=== PATIENT | female | born 1960 | race Caucasian/White ===

== ENCOUNTER → 2016-11-15 | Outpatient (CLI) | payer BC ==
[~2016-11-15] MED LIST: ASPEC81 PO; ATV5X PO; ZOLP5TAB PO
--- NOTE | 2016-11-16 12:41 | MAMMOGRAPHY REPORT ---
BILATERAL DIGITAL SCREENING MAMMOGRAM TOMOSYNTHESIS WITH CAD: 11/15/2016 CLINICAL HISTORY: Routine screening. Patient has no complaints. TECHNIQUE: Breast tomosynthesis in addition to standard 2D mammography was performed. Current study was also evaluated with a Computer Aided Detection (CAD) system. COMPARISON: Comparison is made to exams dated: 09/29/2015 mammogram, 08/01/2013 mammogram, 09/26/2014 m ammogram, 08/07/2012 mammogram, 07/28/2011 mammogram, and 07/27/2010 mammogram - [facility]. BREAST COMPOSITION: The tissue of both breasts is heterogeneously dense, which may obscure small ma sses. FINDINGS: Linear scar markers overlie the 12:00 right breast and upper outer anterior left breast, d enoting skin surgical scars. There is expected architectural distortion in the upper outer quadrant of the left breast, and 12:00 right breast in the areas of prior surgery. There are benign appeari ng coarse calcifications bilaterally. No new suspicious mass, unexpected architectural distortion o r cluster of suspicious microcalcifications is seen. IMPRESSION: ACR BI-RADS CATEGORY 1: NEGATIVE There is no mammographic evidence of malignancy. A 1 year screening mammogram is recommended. The p atient will receive written notification of the results. Approximately 10% of breast cancers are not detected with mammography. A negative mammographic repor t should not delay biopsy if a clinically suggestive mass is present. Taryn Bernardo M.D. ay/:11/15/2016 17:55:38 Tobacco Prizer: Anabelle Cid RT(R)(M), [facility] letter sent: Normal 1/2 BI-RADS Code: ACR BI-RADS Category 1: Negative
== END | disposition home or self-care (01) ==
LOC: C.MAMM 07:18
PROVIDERS: ATTEND Family Medicine
DX: Z12.31 Encounter for screening mammogram for malignant neoplasm of breast (principal)

== ENCOUNTER → 2017-09-11 | Day surgery (SDC) | payer BC ==
[~2017-09-11] VITALS: Ht 162.6 cm; Wt 62.0 kg
[~2017-09-11] MED LIST changes: -ASPEC81 PO; +FENTANYL CITRATE INJ 50 MCG/1 ML 2 ML VIAL ONE; +HYDR25SU20 PR; +LIDOCAINE HCL 2% 2 ML VIAL (20MG/ML) ONE; +ONDANSETRON INJ 2 MG/ML 2 ML VIAL IV PRN; +PANT1TAB3 PO; +PROPOFOL IV EMULSION 10 MG/ML 20 ML VIAL IV ONE
[2017-09-11 08:47] VITALS: Ht 162.6 cm; Wt 62.0 kg
--- NOTE | 2017-09-11 09:10 | Endo History and Physical ---
History & Physical Date of Service: Sep 11, 2017. Chief Complaint: Hematochezia and abdominal pain Referring Physician: History of Present Illness Patient to undergo a hysterectomy later this week referred for upper endoscopy and colonoscopy to evaluate for history of epigastric discomfort and recurrent hematochezia. She reports her last colonoscopy was performed 2.5 years ago and notable for internal hemorrhoids. She does have a prior history of colonic polyps first noted in 2009. The patient last had an upper endoscopy 2 years ago for abdominal discomfort and was found to have diffuse gastritis. She was recently restarted on Protonix 1 time daily. 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) Hx Urinary Tract Surgery: No Family History Colon CA Social History Smoking Status: Never Smoker Hx Substance Use: Yes Hx Alcohol Use: Yes (1-2 A WEEK) Allergies Coded Allergies: Sulfa Antibiotics (Verified Allergy, Unknown, OCCURED A CHILD, RASH, ) Current Medications Reported Home Medications Medications Dose Route/Sig Max Daily Dose Days Date Category Protonix (Pantoprazole) 40 Mg Tab 40 Mg PO DAILY 09/08/17 Reported Ambien (Zolpidem Tartrate) 5 Mg Tab 5 Mg PO HS PRN 04/16/16 Reported Lorazepam 0.5 Mg Tab 0.5 Mg PO DAILY PRN 04/16/16 Reported Vital Signs Weight (Kilograms): 62.05 Height (Feet): 5 Height (Inches): 4 Physical Exam General Appearance: no apparent distress Respiratory/Chest: Auscultation: breath sounds normal Cardiovascular: Heart Auscultation: RRR Assessment and Plan EGD and colonoscopy today. We've discussed the risks to include bleeding, infection, perforation and pain.
--- NOTE | 2017-09-11 10:02 | Discharge Instructions ---
Endoscopy Patient Instructions Date / Procedure(s) Performed Sep 11, 2017. Colonoscopy, EGD Allergy Information Coded Allergies: Sulfa Antibiotics (Verified Allergy, Unknown, OCCURED A CHILD, RASH, ) Discharge Date / Findings Sep 11, 2017. Hemorrhoids 1 small colon polyp Hiatal hernia Medication Instructions Reported Home Medications Medications Dose Route/Sig Max Daily Dose Days Date Category Protonix (Pantoprazole) 40 Mg Tab 40 Mg PO DAILY 09/08/17 Reported Ambien (Zolpidem Tartrate) 5 Mg Tab 5 Mg PO HS PRN 04/16/16 Reported Lorazepam 0.5 Mg Tab 0.5 Mg PO DAILY PRN 04/16/16 Reported Provider Instructions Activity Restrictions - No exercising or heavy lifting for 24 hours. - Do not drink alcohol the day of the procedure. - Do not drive a car or operate machinery until the day after the procedure. - Do not make any important decisions or sign important papers in 24 hours after the procedure. Following Day: - Return to full activity which may include returning to work/school. Diet Start your diet with liquids and light foods (jello, soup, juice, toast). Then eat your usual diet if not nauseated. Treatment For Common After Affects For mild abdominal pain, bloating, or excessive gas: - Rest - Eat lightly - Lie on right side Follow-Up Information Follow-up with DR. HERRERA as scheduled Upper GI series ordered Await pathology results Continue Protonix 40 mg per day for 3 months (continue if symptoms improved) Anesthesia Information What You Should Know You have had a procedure that required some medicine to reduce anxiety and discomfort. This treatment is called moderate sedation. After receiving the treatment, you may be sleepy, but you will be able to breathe on your own. The effects of the treatment may last for several hours. Follow these instructions along with Activity/Diet recommendations noted above: * Do NOT do anything where dizziness or clumsiness would be dangerous. * Rest quietly at home today, then you can be up and about tomorrow. * Have a responsible person stay with you the rest of today. * You may have had an I.V. today. If so, you may take the dressing off later today. Recommendations Call your doctor if: * Trouble breathing * Continuous vomiting for more than 24 hours * Temperature above 101 degrees * Severe abdominal pain or bloating * Pain not relieved by pain medicine ordered * There is increased drainage or redness from any incision * A large amount of rectal bleeding greater than 2-3 tablespoons. (If you had a polyp/s removed or have hemorrhoids, a small amount of blood - from the rectum is to be expected.) * You have any unanswered questions or concerns. IN THE EVENT OF A SERIOUS EMERGENCY, GO TO THE NEAREST EMERGENCY ROOM Your discharge instructions were prepared by provider Nadeem Maxwell. Patient Instructions Signature Page Maria E Hamm Patient (or Guardian) Signature/Date: I have read and understand the instructions given to me by my caregivers. Caregiver/RN/Doctor Signature/Date: The above-named patient and/or guardian has received patient instructions on this date. + Original Patient Signature Page (only) stays with chart. Please make copy for patient.
--- NOTE | 2017-09-11 10:06 | GI REPORT ---
Procedure Date: 09/11/2017 8:57 AM Procedure: Colonoscopy Indications: High risk colon cancer surveillance: Personal history of colonic polyps Medicines: Monitored Anesthesia Care Complications: No immediate complications. Estimated blood loss: Minimal. Estimated Blood Loss: Estimated blood loss was minimal. Procedure: Pre-Anesthesia Assessment: - Prior to the procedure, a History and Physical was performed, and patient medications, allergies and sensitivities were reviewed. The patient's tolerance of previous anesthesia was reviewed. - The risks and benefits of the procedure and the sedation options and risks were discussed with the patient. All questions were answered and informed consent was obtained. - Patient identification and proposed procedure were verified prior to the procedure by the physician, the nurse and the school psychologist. The procedure was verified in the procedure room. - Pre-procedure physical examination revealed no contraindications to sedation. - ASA Grade Assessment: II - A patient with mild systemic disease. - After reviewing the risks and benefits, the patient was deemed in satisfactory condition to undergo the procedure. - The anesthesia plan was to use monitored anesthesia care (MAC). - Immediately prior to administration of medications, the patient was re-assessed for adequacy to receive sedatives. - The heart rate, respiratory rate, oxygen saturations, blood pressure, adequacy of pulmonary ventilation, and response to care were monitored throughout the procedure. - The physical status of the patient was re-assessed after the procedure. After I obtained informed consent, the scope was passed under direct vision. Throughout the procedure, the patient's blood pressure, pulse, and oxygen saturations were monitored continuously. The scope was introduced through the anus and advanced to the terminal ileum. The colonoscopy was performed without difficulty. The patient tolerated the procedure well. The quality of the bowel preparation was good. Findings: The digital rectal exam findings include non-thrombosed external hemorrhoids. Pertinent negatives include normal sphincter tone. Internal hemorrhoids were found during retroflexion. The hemorrhoids were moderate. A 5 mm polyp was found in the sigmoid colon. The polyp was sessile. The polyp was removed with a cold snare. Resection and retrieval were complete. Estimated blood loss was minimal. The terminal ileum appeared normal. Normal cecal retroflexion The exam was otherwise without abnormality. Impression: - Non-thrombosed external hemorrhoids found on digital rectal exam. - Internal hemorrhoids. - One 5 mm polyp in the sigmoid colon, removed with a cold snare. Resected and retrieved. - The examined portion of the ileum was normal. - The examination was otherwise normal. Recommendation: - Discharge patient to home (ambulatory). - Advance diet as tolerated today. - Await pathology results. - Repeat colonoscopy in 5 years for surveillance. Nadeem Maxwell D.O. Nadeem Maxwell, 09/11/2017 9:57:31 AM This report has been signed electronically. Note Initiated On: 09/11/2017 8:57 AM I attest to the content of the Intraoperative Record and orders documented therein, exceptions below
--- NOTE | 2017-09-11 10:23 | Anesthesiology Progress Note ---
Anesthesia Post Op Note Date & Time Sep 11, 2017 at 10:23 Vital Signs Pain Intensity: 3 Vital Signs Past 12 Hours Date Time Temp Pulse Resp B/P (MAP) Pulse Ox O2 Delivery O2 Flow Rate FiO2 09/11/17 10:11 56 18 142/82 (102) 100 Room Air 09/11/17 09:56 67 12 109/80 (90) 100 Room Air 09/11/17 09:12 36.5 66 18 136/94 (108) 100 Room Air Notes Mental Status: alert / awake / arousable, participated in evaluation Pt Amnestic to Procedure: Yes Nausea / Vomiting: adequately controlled Pain: adequately controlled Airway Patency, RR, SpO2: stable & adequate BP & HR: stable & adequate Hydration State: stable & adequate Anesthetic Complications: no major complications apparent
[2017-09-11 10:26] VITALS: BP 121/83; PULSE 50; O2SAT 100
--- NOTE | 2017-09-12 11:40 | GI REPORT ---
Procedure Date: 09/11/2017 8:58 AM Procedure: Upper GI endoscopy Indications: Epigastric abdominal pain Medicines: Monitored Anesthesia Care Complications: No immediate complications. Estimated blood loss: Minimal. Estimated Blood Loss: Estimated blood loss was minimal. Procedure: Pre-Anesthesia Assessment: - Prior to the procedure, a History and Physical was performed, and patient medications, allergies and sensitivities were reviewed. The patient's tolerance of previous anesthesia was reviewed. - The risks and benefits of the procedure and the sedation options and risks were discussed with the patient. All questions were answered and informed consent was obtained. - Patient identification and proposed procedure were verified prior to the procedure by the physician, the nurse and the squadron worker. The procedure was verified in the procedure room. - Pre-procedure physical examination revealed no contraindications to sedation. - ASA Grade Assessment: II - A patient with mild systemic disease. - After reviewing the risks and benefits, the patient was deemed in satisfactory condition to undergo the procedure. - The anesthesia plan was to use monitored anesthesia care (MAC). - Immediately prior to administration of medications, the patient was re-assessed for adequacy to receive sedatives. - The heart rate, respiratory rate, oxygen saturations, blood pressure, adequacy of pulmonary ventilation, and response to care were monitored throughout the procedure. - The physical status of the patient was re-assessed after the procedure. After obtaining informed consent, the endoscope was passed under direct vision. Throughout the procedure, the patient's blood pressure, pulse, and oxygen saturations were monitored continuously. The Scope was introduced through the mouth, and advanced to the third part of duodenum. The upper GI endoscopy was accomplished without difficulty. The patient tolerated the procedure well. Findings: The examined esophagus was normal. The Z-line was regular and was found 38 cm from the incisors. A medium-sized hiatal hernia was found. The proximal extent of the gastric folds (end of tubular esophagus) was 38 cm from the incisors. The hiatal narrowing was 43 cm from the incisors. The Z-line was 38 cm from the incisors. The gastric body, incisura and gastric antrum were normal. The examined duodenum was normal. Biopsies for histology were taken with a cold forceps for evaluation of celiac disease. Estimated blood loss was minimal. Impression: - Normal esophagus. - Z-line regular, 38 cm from the incisors. - Medium-sized hiatal hernia. - Normal gastric body, incisura and antrum. - Normal examined duodenum. Biopsied. Recommendation: - Perform a colonoscopy today. - Await pathology results. - Use Protonix (pantoprazole) 40 mg PO daily for 3 months. - Do an upper GI series at appointment to be scheduled (better define hiatal hernia). Nadeem Maxwell D.O. Nadeem Maxwell, DO 09/11/2017 10:00:31 AM This report has been signed electronically. Note Initiated On: 09/11/2017 8:58 AM I attest to the content of the Intraoperative Record and orders documented therein, exceptions below
== END | disposition home or self-care (01) ==
LOC: C.GI 08:25
PROVIDERS: ATTEND Internal Medicine Gastroenterology
DX: Z12.11 Encounter for screening for malignant neoplasm of colon (principal); R10.13 Epigastric pain; K44.9 Diaphragmatic hernia without obstruction or gangrene; D12.5 Benign neoplasm of sigmoid colon; K63.5 Polyp of colon; K64.8 Other hemorrhoids; K64.4 Residual hemorrhoidal skin tags; R10.9 Unspecified abdominal pain; Z86.010 Personal history of colon polyps; Z80.0 Family history of malignant neoplasm of digestive organs

== ENCOUNTER 2017-09-15 05:21 | Observation (INO) | payer BC ==
[2017-09-06 13:06] VITALS: Ht 162.6 cm; Wt 63.1 kg
--- NOTE | 2017-09-06 13:37 | PAT Medication Instructions ---
Service Date Sep 06, 2017. Current Home Medication List Hydrocortisone Acetate (Rectal (Anusol-Hc), 25 MG OR BID PRN for PRN Lorazepam (Lorazepam), 0.5 MG PO DAILY PRN for Anxiety Zolpidem Tartrate (Ambien), 5 MG PO HS PRN for Sleep Medication Instructions For Your Scheduled Surgery - Hold the following medications the morning of surgery: Hydrocortisone Acetate (Rectal (Anusol-Hc), 25 MG OR BID PRN for PRN - Take the following medications the morning of surgery with a sip of water: Lorazepam (Lorazepam), 0.5 MG PO DAILY PRN for Anxiety (if needed) - Take the following medications as scheduled the night before surgery: Hydrocortisone Acetate (Rectal (Anusol-Hc), 25 MG OR BID PRN for PRN (if needed) Lorazepam (Lorazepam), 0.5 MG PO DAILY PRN for Anxiety (if needed) Zolpidem Tartrate (Ambien), 5 MG PO HS PRN for Sleep (if needed) If you have any questions please call us at [phone] or [phone] or [phone]
[2017-09-06 16:11] LABS: BASO % 0.5 %; BASO ABS # 0.03 K/uL (0-0.2); EOS % 0.3 %; EOS ABS # 0.02 K/uL (0-0.5); HEMATOCRIT 40.1 % (37-47); HEMOGLOBIN 13.4 g/dL (12.0-16.0); IG# 0.01 K/uL (0.00-0.02); LYMPH % 22.1 %; LYMPH ABS # 1.38 K/uL (1.2-3.4); MEAN CELL VOLUME 91.3 fL (80-100); MEAN CORPUSCULAR HEMOGLOBIN 30.5 pg (25-34); MEAN CORPUSCULAR HGB CONC 33.4 g/dl (32-36); MONO % 7.2 %; MONO ABS # 0.45 K/uL (0.11-0.59); NEUT % 69.7 %; NEUT ABS # 4.35 K/uL (1.4-6.5); PLATELET COUNT 300 K/uL (130-400); RED CELL DISTRIBUTION WIDTH CV 13.9 % (11.5-14.5); RED CELL DISTRIBUTION WIDTH SD 46.6 fL (36.4-46.3); WHITE BLOOD COUNT 6.24 K/uL (4.8-10.8)
[~2017-09-15] VITALS: Ht 162.6 cm; Wt 63.1 kg
[2017-09-15] VITALS (8 sets, daily range): BP systolic 114–123; BP diastolic 61–77; PULSE 54–65; TEMP 36.3–36.9; O2SAT 97–100
[~2017-09-15 05:21] MED LIST changes: -FENTANYL CITRATE INJ 50 MCG/1 ML 2 ML VIAL ONE; -HYDR25SU20 PR; -LIDOCAINE HCL 2% 2 ML VIAL (20MG/ML) ONE; -ONDANSETRON INJ 2 MG/ML 2 ML VIAL IV PRN; -PROPOFOL IV EMULSION 10 MG/ML 20 ML VIAL IV ONE
[2017-09-15] MEDS ORDERED: CEFAZOLIN 2000MG IV PUSH 10 ML IV SCH (06:00)
[2017-09-15] MEDS ORDERED: LACTATED RINGER'S 1000ML 1,000 ML IV SCH ×2 (06:00)
--- NOTE | 2017-09-15 06:39 | History & Physical Bridge Note ---
H&P Re-Evaluation Bridge Note: I have examined the patient, reviewed the History & Physical and in the interval since the performance of the History & Physical I have noted the following changes of clinical significance: No changes noted
[2017-09-15] MEDS ORDERED: MIDAZOLAM HCL 1 MG/ML 2ML VIAL ONE (06:48)
[2017-09-15] MEDS ORDERED: FENTANYL CITRATE INJ 50 MCG/1 ML 2 ML VIAL ONE (06:48)
[2017-09-15] MEDS ORDERED: BUPIVACAINE 0.5 % 5 MG/1 ML MPF 30ML VIAL ONE (07:33)
[2017-09-15] MEDS ORDERED: METHYLENE BLUE 0.5% 10 ML VIAL ONE (07:33)
[2017-09-15] MEDS ORDERED: HYDROmorphone INJ 2 MG/ML SYR/VIAL ONE (07:35)
[2017-09-15] MEDS ORDERED: ROCURONIUM BROMIDE 10 MG/ML 5 ML VIAL IV ONE (07:41)
[2017-09-15] MEDS ORDERED: LIDOCAINE HCL 2% 2 ML VIAL (20MG/ML) ONE (07:41)
[2017-09-15] MEDS ORDERED: NEOSTIGMINE METHYLSULFATE 5 MG/5 ML SYR ONE (07:41)
[2017-09-15] MEDS ORDERED: ONDANSETRON INJ 2 MG/ML 2 ML VIAL ONE (07:41)
[2017-09-15] MEDS ORDERED: DEXAMETHASONE SOD INJ 4 MG/ML VIAL ONE (07:41)
[2017-09-15] MEDS ORDERED: GLYCOPYRROLATE INJ 0.2 MG/ML VIAL ONE (07:41)
[2017-09-15] MEDS ORDERED: PROPOFOL IV EMULSION 10 MG/ML 20 ML VIAL IV ONE (07:41)
[2017-09-15] MEDS ORDERED: EpHEDrine SULFATE 50MG/5ML SYR ONE (08:00)
[2017-09-15] MEDS ORDERED: FLOSEAL HEMOSTATIC MATRIX 10ML TOP ONE (09:28)
[2017-09-15] MEDS ORDERED: FLUMAZENIL 0.1 MG/1 ML 10 ML VIAL IV PRN (09:30)
[2017-09-15] MEDS ORDERED: EpHEDrine SULFATE INJ 50 MG/ML AMP IV PRN (09:30)
[2017-09-15] MEDS ORDERED: NALOXONE HCL 0.4 MG/1 ML VIAL/CARP IV PRN (09:30)
[2017-09-15] MEDS ORDERED: LABETALOL HCL IV 5 MG/ML 20ML IV PRN (09:30)
[2017-09-15] MEDS ORDERED: PROMETHAZINE HCL INJ 12.5 MG in SODIUM CHLORIDE 0.9% 50ML 50 ML IV PRN ×2 (09:30→09:45)
[2017-09-15] MEDS ORDERED: ONDANSETRON INJ 2 MG/ML 2 ML VIAL IV PRN ×2 (09:30→09:45)
[2017-09-15] MEDS ORDERED: ATROPINE SULFATE 0.1 MG/ML 5ML SYR IV PRN (09:30)
--- NOTE | 2017-09-15 09:39 | [facility] Post Operative Brief Note ---
Immediate Operative Summary Operative Date Sep 15, 2017. Pre-Operative Diagnosis Complex hyperplasia with atypia; Desire for bilateral ovary removal Post-Operative Diagnosis Complex hyperplasia with atypia; Desire for bilateral ovary removal Procedure(s) Performed Total Laparoscopic Hysterectomy, Bilateral Salpingo-Oopherectomy, and Cystoscopy Surgeon Dr. Gonzalez Bobbin Winder Surgeon(s) Dr. Redd Estimated Blood Loss 60 mL Findings Consistent with Post-Op Diagnosis Fluids (cc crystalloids) 1300 Specimens A: Cervix, uterus, bilateral fallopian tubes, and bilateral ovaries Drains None Anesthesia Type General Complication(s) none Disposition Disposition: Recovery Room / PACU
[2017-09-15] MEDS ORDERED: ACETAMINOPHEN 325 MG TAB PO PRN (09:45)
[2017-09-15] MEDS ORDERED: KETOROLAC TROMETHAMINE 30 MG/ML VIAL IV. PRN (09:45)
[2017-09-15] MEDS ORDERED: KETOROLAC TROMETHAMINE 30 MG/ML VIAL ONE (10:12)
[2017-09-15] MEDS ORDERED: HYDROmorphone INJ 1 MG/ML SYR ONE (10:12)
[2017-09-15] MEDS: HYDROmorphone INJ 1 MG/ML SYR IV PRN ×5 (10:20→10:47)
[2017-09-15] MEDS ORDERED: IV FLUIDS COMPLETED PRN (10:45)
--- NOTE | 2017-09-15 10:56 | Anesthesiology Progress Note ---
Anesthesia Post Op Note Date & Time Sep 15, 2017 at 10:56 Vital Signs Pain Intensity: 5.0 Vital Signs Past 12 Hours Date Time Temp Pulse Resp B/P (MAP) Pulse Ox O2 Delivery O2 Flow Rate FiO2 09/15/17 10:45 57 18 116/74 100 Nasal Cannula 2 09/15/17 10:35 65 18 117/74 99 Nasal Cannula 2 09/15/17 10:25 67 14 111/68 98 Oxymask 8 09/15/17 10:15 72 18 124/73 98 Oxymask 8 09/15/17 10:05 82 15 131/87 98 Oxymask 8 09/15/17 09:59 36.5 79 16 133/81 100 Oxymask 8 Notes Mental Status: alert / awake / arousable, participated in evaluation Pt Amnestic to Procedure: Yes Nausea / Vomiting: adequately controlled Pain: adequately controlled Airway Patency, RR, SpO2: stable & adequate BP & HR: stable & adequate Hydration State: stable & adequate Anesthetic Complications: no major complications apparent
[2017-09-15] MEDS: SIMETHICONE 80 MG CHEW PO PRN ×3 (12:50→20:38)
[2017-09-15] MEDS: OXYCODONE/ACETAMINOPHEN 5-325 TAB PO PRN ×3 (14:50→23:55)
[2017-09-15] MEDS: IBUPROFEN 600 MG TAB PO PRN ×3 (14:50→23:54)
[2017-09-15] MEDS ORDERED: MTR600X PO (16:22)
[2017-09-15] MEDS ORDERED: CLC100 PO (16:22)
[2017-09-15] MEDS ORDERED: MYL80 PO (16:22)
[2017-09-15] MEDS ORDERED: OXYC-57 PO (16:22)
[2017-09-15] MEDS ORDERED: ACET-1047 PO (16:22)
--- NOTE | 2017-09-15 16:23 | Discharge Instructions ---
Discharge Instructions Date of Service Sep 15, 2017. Admission Reason for Admission: Complex Hyperplasia With Atypia Discharge Discharge Diagnosis / Problem: Postop Discharge Goals Goal(s): Routine recovery after surgery Activity Recommendations Activity Limitations: as noted below POST OPERATIVE: BOWEL FUNCTION/MEDICATIONS: 1. Constipation pain and discomfort are the most common complaints 5-7 days after surgery. Points 2-6 address the things that can help. 2. Chewing gum can help stimulate the gut and help improve digestion and motility. 3. Milk of Magnesia 1-2 times per day until return of bowel function. 4. Colace is a stool softener that helps. Taking this 2-3 times per day until bowel function returns to normal is highly recommended. 5. Dulcolax is a laxative that may be used if several days have passed without a bowel movement. Alternatively Miralax may be used daily instead. 6. Drink plenty of fluids as this will also reduce constipation. 7. Narcotic pain medications will be prescribed by your physician. They are safe to use and we encourage you to use them. If you are not allergic, ibuprofen will also be prescribed. Many patients will be able to transition off of the narcotic medications to ibuprofen by postoperative day 3. ACTIVITY RECOMMENDATIONS: 1. Get plenty of rest and listen to your body. If you are tired, take a nap. 2. You may shower, but do not take a tub bath until you see your doctor at the 2 week post operative visit. 3. Absolutely NO intercourse and nothing in the vagina until you are examined by your doctor at the 6 week visit. At that visit it will be determined when such activities can be resumed. This can range from 6-12 weeks after your surgery depending on healing time. 4. The main physical activity in the first week should be walking. By the second week you can slowly increase activity. There are no limits on walking up and down stairs. 5. Do not lift more than 5-10 lbs for 4 weeks. Remember the "one-handed rule", i.e. if you can lift something with only one hand it's likely okay. 6. Minimize hypoid gear tester like vacuuming and exercising for 4 weeks. "Overdoing it" can lead to incisions not healing, pain and vaginal bleeding , so again, listen to your body. 7. Driving can be resumed when you feel able. Do not drive within 24 hours of taking a narcotic medication. EXPECTATIONS: 1. Vaginal spotting, bleeding and discharge are common after surgery. There may even be an odor to the discharge which is often related to sutures used in the vagina. If you experience heavy vaginal bleeding, call the office number day or night [phone] 2. Bladder discomfort is common after surgery from the catheter. This usually resolves in 1-2 weeks. 3. By the end of the 3rd or 4th week you should be feeling much better. It may take up to 6 weeks for your energy levels to return to normal. 4. Narcotic medications have side effects such as: dizziness, headache, nausea and/or vomiting. If you suspect your pain medication is causing problems, call our office and we may be able to prescribe an alternate medication. 5. The skin incisions are often covered with a liquid bandage. This will gradually peel off over time. CALL THE OFFICE IF YOU HAVE ANY OF THE FOLLOWIN. Temperature of 101 degrees or higher. 2. Severe abdominal or pelvic pain not relieved by pain medication. 3. Persistent nausea or vomiting. 4. Increased pain with urination or difficulty urinating. 5. Bright red bleeding that soaks more than 1 pad per hour. CONTACT PHONE NUMBERS: Main Office: [phone] FOLLOW-UP: Post-Operative Appointments: * Individual instructions will have been given about the timing of your first examination, but this is usually at the end of the second week home. * You will need to call the office at soon after discharge to make the appointment for your post-op check-up if it has not already been scheduled. * Additional information regarding activity, sexual intercourse and when to return to work will be given at this appointment. WE WISH YOU A SPEEDY RECOVERY! . Current Hospital Diet Patient's current hospital diet: Regular Diet Discharge Diet Recommended Diet: Regular Diet Procedures Procedures Performed: Total Laparoscopic Hysterectomy, Bilateral Salpingo-Oopherectomy, and Cystoscopy Pending Studies Studies pending at discharge: no Medical Emergencies . Who to Call and When: Medical Emergencies: If at any time you feel your situation is an emergency, please call 911 immediately. . Non-Emergent Contact Non-Emergency issues call your: Specialist . . "Provider Documentation" section prepared by Meghana Helton. . VTE Core Measure Inpt VTE Proph given/why not?: Treatment not indicated
--- NOTE | 2017-09-15 17:05 | [facility] Operative Report ---
Operative Report Operative Date Sep 15, 2017. Pre-Operative Diagnosis Complex hyperplasia with atypia; Desire for bilateral ovary removal Post-Operative Diagnosis Complex hyperplasia with atypia; Desire for bilateral ovary removal Procedure(s) Performed Total Laparoscopic Hysterectomy, Bilateral Salpingo-Oopherectomy, and Cystoscopy Surgeon Dr. Gonzalez Strap Making Machine Operator Surgeon(s) Dr. Redd Estimated Blood Loss 60 mL Findings Normal bimanual exam. Normal size anteverted uterus. No adnexal massess palpable. On laparoscopy, normal uterus, fallopian tubes, ovaries and liver edge. Normal cystoscopy with bilateral efflux seen post TLH. Fluids 1300 Specimens A: Cervix, uterus, bilateral fallopian tubes, and bilateral ovaries Complication(s) None Disposition Recovery Room / PACU Indications Ms. Tre Hamm is a 57 yo with complex hyperplasia with atypia. The patient requested definitive management with hysterectomy and bilateral salpingo- oopherectomy after discussing all possible medical options. Consent was signed in the office prior and all risks and benefits were reviewed. Description of Procedure The patient was transferred to the operating room where general endotracheal anesthesia was administered. The patient was then placed in the dorsal lithotomy position and prepped and draped in the usual sterile fashion. A weighted speculum was placed in the vagina and with the help of a Castrejon retractor the cervix was visualized and grasped anteriorly with a single tooth tenaculum. The uterus was sounded to 8 cm with a uterine sound. A V-care uterine manipulator was then inserted to allow mobilization of the uterus. The weighted speculum was then removed. Attention was then turned to the abdomen, in which 25% marcaine was injected into the inferior portion of the umbilicus. A 5 mm incision was made through the skin with a #11 blade. The 5 mm trocar, sleeve and laparoscope entered directly into the pelvic cavity. The peritoneal cavity was insufflated with C02 gas. Examination of the peritoneal cavity revealed the above noted findings. The patient was then placed in Trendelenburg and three more 5 mm trocars were placed, one on the right and two on the left, taking care to avoid the epigastric vessels. All trocars were placed under direct visualization with no inadvertent damage to the underlying structures. The uterus was upheld from below with good visualization. Beginning on the right side, the infundibular ligament was identified by lifting the tube towards the anterior wall of the abdomen. The ureter was confirmed along the pelvic side wall and peristalsis was noted. The Kalyan Harmonic was used to clamp and ligate the IP ligament. The IP was then cut again being sure to be clear of the ureter. Following this, the broad ligament was sequentially grasped, ligated , and cut in the direction of the round ligament hugging next to the fallopian tube. The round ligament was then ligated and cut. Following this, the anterior left of the broad ligament was then taken on the right side down towards the peritoneal reflection at the base of the bladder and adjacent to the cervix. The same process was then repeated on the left side such that both sides met and the anterior leaflet had been appropriately skeletonized. Once the bladder was appropriately dissected free from the lower anterior uterine segment and the tissues skeletonized, the uterine arteries were bilaterally clamped and ligated. Pedicles were checked and hemostatic. At the level of the colpotomizer , the vaginal vault was incised circumferentially with the Kalyan Harmonic. The uterus, bilateral fallopian tube and ovaries were delivered through the vagina and sent to pathology. A sterile glove was placed in the vagina to form a pneumatic seal. The vaginal vault was closed with 0 V-loc being sure to avoid the bladder lateral pedicles. Following vault closure, an inspection of all areas was noted to be hemostatic. Copious irrigation was then performed. Surgiseal was applied to the vagina cuff. All ports were removed under direct visualization and hemostasis noted. All incision sites were closed with 4-0 monocryl and dermabond. The figueroa catheter was then removed. Cystoscopy was then performed with no lesions, suture, or abnormalities noted. Bilateral efflux of methylene blue was noted. The cystoscope was removed and the bladder was then drained. At the end of the procedure, all sponge and instruments, and sharps were counted and correct. The patient was taken to recovery in stable condition. I attest to the content of the Intraoperative Record and any orders documented therein. Any exceptions are noted below.
[2017-09-15 20:23] LABS: HEMATOCRIT 34.5 % (37-47); HEMOGLOBIN 11.5 g/dL (12.0-16.0)
[2017-09-15] MEDS: DOCUSATE SODIUM 100 MG CAP PO SCH (20:37)
[2017-09-15] MEDS: LACTATED RINGER'S 1000ML 1,000 ML IV SCH (21:40)
[2017-09-16 04:25] VITALS: BP 111/81; PULSE 60; TEMP 36.8; O2SAT 99
[2017-09-16] MEDS: OXYCODONE/ACETAMINOPHEN 5-325 TAB PO PRN ×2 (04:33→09:00)
[2017-09-16] MEDS: IBUPROFEN 600 MG TAB PO PRN (06:44)
[2017-09-16] MEDS: LACTATED RINGER'S 1000ML 1,000 ML IV SCH (06:46)
[2017-09-16 08:05] VITALS: BP 122/81; PULSE 56; TEMP 37; O2SAT 100
--- NOTE | 2017-09-16 08:05 | Surgery Progress Note ---
Surgery Progress Note Date of Service Sep 16, 2017. Subjective Post OP Day: 1 + feeling well Unable to void overnight. Crook catheter replaced with good urine output. Objective Vital Signs: Date Time Temp Pulse Resp B/P (MAP) Pulse Ox O2 Delivery O2 Flow Rate FiO2 09/16/17 04:25 36.8 60 18 111/81 (91) 99 Room Air 09/15/17 23:55 36.9 61 20 114/61 (78) 100 Room Air 09/15/17 23:55 100 Room Air 09/15/17 19:35 36.9 63 18 120/77 (91) 97 Room Air 09/15/17 14:50 98 Room Air 09/15/17 14:50 36.3 64 20 118/74 (89) 98 Room Air 09/15/17 14:10 36.3 62 18 118/74 (89) 98 Room Air 09/15/17 13:10 36.5 65 18 116/76 (89) 100 Room Air 09/15/17 12:10 36.4 60 20 121/74 (90) 100 Room Air 09/15/17 11:40 36.3 59 18 123/73 (90) 100 Nasal Cannula 1.0 09/15/17 11:20 100 Nasal Cannula 1.0 09/15/17 11:20 100 Nasal Cannula 1.0 09/15/17 11:20 36.3 54 18 116/73 (87) 100 Nasal Cannula 1.0 09/15/17 11:05 64 15 120/75 100 Nasal Cannula 2 09/15/17 10:55 36.2 60 15 113/73 100 Nasal Cannula 2 09/15/17 10:45 57 18 116/74 100 Nasal Cannula 2 09/15/17 10:35 65 18 117/74 99 Nasal Cannula 2 09/15/17 10:25 67 14 111/68 98 Oxymask 8 09/15/17 10:15 72 18 124/73 98 Oxymask 8 09/15/17 10:05 82 15 131/87 98 Oxymask 8 09/15/17 09:59 36.5 79 16 133/81 100 Oxymask 8 General Appearance: WD/WN, no apparent distress Respiratory/Chest: chest non-tender, lungs clear, normal breath sounds, no respiratory distress, no accessory muscle use Cardiovascular: regular rate, rhythm Abdomen: normal bowel sounds, + tenderness (appropriately tender to palpation) Incision(s): clean, dry, intact, no erythema, no drainage Laboratory Results: Results Past 24 Hours Test 09/15/17 20:11 09/16/17 06:00 Range/Units Hemoglobin 11.5 12.0-16.0 g/dL Hematocrit 34.5 37-47 % Assessment & Plan 57 yo POD #1 s/p TLH/BSO/Cystoscopy. Pt able to discharge home today when meeting voiding trial.
[2017-09-16 08:16] LABS: BASO % 0.2 %; BASO ABS # 0.01 K/uL (0-0.2); EOS % 0.2 %; EOS ABS # 0.01 K/uL (0-0.5); HEMATOCRIT 33.6 % (37-47); HEMOGLOBIN 11.2 g/dL (12.0-16.0); IG# 0.01 K/uL (0.00-0.02); LYMPH % 22.7 %; LYMPH ABS # 1.37 K/uL (1.2-3.4); MEAN CELL VOLUME 91.1 fL (80-100); MEAN CORPUSCULAR HEMOGLOBIN 30.4 pg (25-34); MEAN CORPUSCULAR HGB CONC 33.3 g/dl (32-36); MEAN PLATELET VOLUME 9.5 fL (7.4-10.4); MONO % 11.8 %; MONO ABS # 0.71 K/uL (0.11-0.59); NEUT % 64.9 %; NEUT ABS # 3.92 K/uL (1.4-6.5); PLATELET COUNT 219 K/uL (130-400); RED CELL DISTRIBUTION WIDTH CV 14.2 % (11.5-14.5); WHITE BLOOD COUNT 6.03 K/uL (4.8-10.8)
[2017-09-16 08:44] LABS: CALCIUM 8.8 mg/dl (8.5-10.1); CREATININE 0.89 mg/dl (0.60-1.20); POTASSIUM 4.2 mmol/L (3.5-5.1)
[2017-09-16] MEDS: DOCUSATE SODIUM 100 MG CAP PO SCH (09:00)
[2017-09-16] MEDS: SIMETHICONE 80 MG CHEW PO PRN (09:00)
[2017-09-16 11:45] VITALS: BP 117/78; PULSE 57; TEMP 37.1; O2SAT 100
== END 2017-09-16 12:35 | disposition home or self-care (01) ==
LOC: C.ACU 05:21 → C.MS4N 09:46 → ENRESERV 11:07
PROVIDERS: ADMIT Obstetrics & Gynecology Obstetrics; ATTEND Obstetrics & Gynecology Obstetrics
DX: N85.02 Endometrial intraepithelial neoplasia [EIN] (principal); F41.9 Anxiety disorder, unspecified; K21.9 Gastro-esophageal reflux disease without esophagitis; K44.9 Diaphragmatic hernia without obstruction or gangrene; K29.70 Gastritis, unspecified, without bleeding; F43.20 Adjustment disorder, unspecified; Z90.89 Acquired absence of other organs; Z80.52 Family history of malignant neoplasm of bladder; Z82.49 Family history of ischemic heart disease and other diseases of the circulatory system; Z83.3 Family history of diabetes mellitus; Z80.0 Family history of malignant neoplasm of digestive organs

== ENCOUNTER 2017-09-18 16:57 | Emergency (ER) | payer BC ==
[~2017-09-18 16:57] MED LIST changes: +ACET-1047 PO; +CLC100 PO; +MTR600X PO; +MYL80 PO; +OXYC-57 PO
== END 2017-09-18 17:45 | disposition left against medical advice (07) ==
LOC: C.EDB 16:59
DX: R10.9 Unspecified abdominal pain (principal)

== ENCOUNTER → 2017-11-20 | Outpatient (CLI) | payer BC ==
--- NOTE | 2017-11-21 07:46 | MAMMOGRAPHY REPORT ---
BILATERAL DIGITAL SCREENING MAMMOGRAM TOMOSYNTHESIS WITH CAD: 11/20/2017 CLINICAL HISTORY: Routine screening. Patient reported left upper outer quadrant tenderness. Linear scar markers overlie TECHNIQUE: Breast tomosynthesis in addition to standard 2D mammography was performed. Current study was also evaluated with a Computer Aided Detection (CAD) system. COMPARISON: Comparison is made to exams dated: 11/15/2016 mammogram, 09/29/2015 mammogram, 09/26/2014 donte mogram, 08/01/2013 mammogram, 07/31/2012 mammogram, and 07/28/2011 mammogram - [facility] enter. BREAST COMPOSITION: The tissue of both breasts is heterogeneously dense, which may obscure small mas ses. FINDINGS: The 12:00 right breast and 1:00 left breast, and there is expected architectural distortion near the skin scar markers in each breast. Scattered benign-appearing calcifications. No suspiciou s mass, architectural distortion or cluster of microcalcifications is seen. IMPRESSION: ACR BI-RADS CATEGORY 1: NEGATIVE 1. Stable bilateral mammograms, without mammographic evidence of malignancy. 2. The patient reported left upper outer quadrant tenderness during the screening examination. Clin ical follow-up is therefore recommended to determine if targeted left breast ultrasound may be useful for further evaluation. Otherwise, a 1 year screening mammogram is recommended. The patient will receive written notificatio n of the results. Approximately 10% of breast cancers are not detected with mammography. A negative mammographic report should not delay biopsy if a clinically suggestive mass is present. Taryn Bernardo M.D. ay/:11/20/2017 21:06:56 Spring Coiling Machine Setter: Anabelle RAI(Damir)(Mir), [facility] letter sent: Normal 1/2 BI-RADS Code: ACR BI-RADS Category 1: Negative
== END | disposition home or self-care (01) ==
LOC: C.MAMM 08:26
PROVIDERS: ATTEND Family Medicine
DX: Z12.31 Encounter for screening mammogram for malignant neoplasm of breast (principal)

== ENCOUNTER → 2018-04-06 | Outpatient (CLI) | payer BC | END | disposition home or self-care (01) | LOC: C.RDSM 10:26 | PROVIDERS: ATTEND Physical Medicine & Rehabilitation Sports Medicine | DX: M25.571 Pain in right ankle and joints of right foot (principal); M25.572 Pain in left ankle and joints of left foot ==